=== PATIENT | male | born 1930 | race Two or more races ===

== ENCOUNTER 2019-10-03 10:08 | Day surgery (SDC) | payer OTHER ==
[~2019-10-03 10:08] MED LIST: ATORVASTATIN CA40 MG PO; HORIZANT300 MG PO; LOSARTAN POTASS50 MG PO; NORVASC10 MG PO
== END 2019-10-04 08:00 | disposition home or self-care (01) ==
LOC: CIR.AMB 10:08 → SURG 18:14 → CIR.AMB 10-04 08:00 → SURG 10-04 12:07
DX: T83.490A Other mechanical complication of implanted penile prosthesis, initial encounter (principal); N52.8 Other male erectile dysfunction
CPT/HCPCS: 54405; C1813